=== PATIENT | female | born 1965 | race Caucasian/White ===

== ENCOUNTER 2016-11-17 18:38 | Emergency (ER) | payer BC ==
--- NOTE | 2016-11-17 18:56 | ED NURSING NOTES ---
Clinical Report - Nurses [facility] [address] [place] [address] 11/17/2016 18:40 Patient: CALVIN RUFFIN TRIAGE Triage time 18:44. Acuity: LEVEL 3. Chief Complaint: CAT BITE. Alert. No acute distress. --18:54 Stacia Alvarenga R.N. 18:44 11/17/16. BP: 136/69. HR: 82. RR: 18. O2 saturation: 99%. Temp: 97.9 F. Pain level now: 08/20. --18:54 Stacia Alvarenga R.N. Weight: 74.8 kg stated. Height/Length: 64 inches Per Patient. BMI: 28.3. --18:53 Stacia Alvarenga R.N. Medications None. --18:48 Stacia Alvarenga R.N. Medication/allergy information source: the patient. --18:54 Stacia Alvarenga R.N. Allergies No Known Drug Allergy. --18:48 Stacia Alvarenga R.N. History Arrived by private vehicle. Historian: patient. Accompanied by family. Primary physician (HAMIDA). Location of injuries: left elbow. This occurred just prior to arrival. (GIVING CAT WORM MEDS). The animal reportedly appeared well and is up to date on immunizations. Treatment CLIP WRAPPER: Performed wound care. PAST MEDICAL HX: Tetanus status: up-to-date. The patient is post-menopausal. SOCIAL HX: Smoker- current status unknown. Occasional alcohol use. No drug use. FALL RISK ASSESSMENT: Fall risk assessment completed. No fall risk identified. NUTRITIONAL RISK ASSESSMENT: The nutritional risk assessment revealed no deficiencies. FUNCTIONAL ASSESSMENT: Functional assessment: no impairments noted. LEARNING NEEDS ASSESSMENT: The learning needs assessment revealed no barriers. SKIN INTEGRITY ASSESSMENT: Skin integrity risk assessment completed. No skin integrity risk identified. --18:54 Stacia Alvarenga R.N. PROBLEMS: Mitral Valve Prolapse. Asthma. --18:51 Stacia Alvarenga R.N. ADDITIONAL SURGERIES: . --18:51 Stacia Alvarenga R.N. Tonsillectomy. --18:52 Stacia Alvarenga R.N. Interventions ID band on patient. To room. --18:54 Stacia Alvarenga R.N. PHYSICAL ASSESSMENT Ambulatory to room. GENERAL / NEURO / PSYCH: Alert. Oriented X 4. Appears anxious. HEENT: Head non-tender. RESPIRATORY: Respirations not labored. CVS: Capillary refill less than 2 seconds. GI / : Abdomen soft and nontender. EXTREMITIES: Extremities exhibit normal ROM. Neuro-vascular status intact to the extremity. SKIN: ( cat bite lt ac). --18:54 Stacia Alvarenga R.N. NURSING PROGRESS NOTES Extremity elevated. Two patient identifiers checked. Call light placed in reach. Side rails up x 2. Bed placed in lowest position. Brakes of bed on. Patient ready for evaluation. --18:55 Stacia Alvarenga R.N. 18:57 11/17/2016 Augmentin (Amoxicillin-Pot Clavulanate) PO 875 mg given. Allergies verified and confirmed 5 rights. --18:57 Stacia Alvarenga R.N. DISPOSITION / DISCHARGE 19:03 11/17/16. Condition at departure: improved. No learning barriers present. Discharge instructions provided and reviewed with the patient and family. Reviewed medication(s) side effects, precautions, dosing and course information. Prescription(s) given to the patient. Patient verbalized understanding. Written instructions provided in Mauritanian. The patient was discharged home and accompanied by family. She left the Emergency Department ambulatory and via private vehicle. Family member driving. Medication list reviewed and validated. --19:03 Stacia Alvarenga R.N. 18:44 11/17/16. BP: 136/69. HR: 82. RR: 18. O2 saturation: 99%. Temp: 97.9 F. Pain level now: 08/20. --19:03 Stacia Alvarenga R.N. Locked/Released at 11/17/2016 19:04 by Stacia Alvarenga R.N.
--- NOTE | 2016-11-17 18:56 | ED CLINICAL REPORT ---
Clinical Report - Physicians/Mid Levels [facility] [address] [place] [address] 11/17/2016 18:40 Patient: CALVIN RUFFIN Time Seen: 1840. Arrived- By private vehicle. Historian- patient. HISTORY OF PRESENT ILLNESS Chief Complaint: CAT BITE. Location of injuries- (LUE). The injury occurred today. The animal reportedly appeared well, is up to date on immunizations and can be observed for ten days. Occurred at home. (occurred while trying to give the cat worm medication). No skin rash, dizziness, itching or difficulty breathing. She has not had swelling, drainage or trouble swallowing. Treatment HOME CARE AIDE- none. REVIEW OF SYSTEMS No swelling, numbness, headache, difficulty breathing or weakness. No tingling, chest pain, nausea or abdominal pain. All systems otherwise negative, except as recorded above. PAST HISTORY See nurses notes. Tetanus immunization status is up-to-date. Medications: None. Allergies: No Known Drug Allergy. PHYSICAL EXAM Appearance: Alert. Oriented X3. No acute distress. Head: Head normal on inspection and non-tender. No Bhatti's sign or raccoon eyes. CVS: Heart sounds normal. Pulses normal. Respiratory: Chest normal on inspection. Breath sounds normal. Chest nontender. Abdomen: Normal inspection. Soft and nontender. Bowel sounds normal. Extremities: (superficial abrasion noted to the left AC and small pucture wound to the left thumb. It is not over the joint. No FB. Bleeding controlled. No gross contamination.). PROGRESS AND PROCEDURES Course of Care: The patient is a 51-year-old female with no pertinent past medical history presenting for evaluation of cat bite. Patient states that her cat had bitten her on the upper extremity after giving the cat deworming pills. No signs of cellulitis at this time. No gross Contamination. The patient states that her cat is a Maori blue. Vaccinations are up-to-date per the family. No other findings noted on patient's workup. Recommended Prophylactic antibiotics because of the Bite. No signs of active infection. Tetanus up to date per patient. Discussed with patient her work up in the emergency department including diagnosis home care, follow up, and return precautions. All questions answered. patient expressed understanding of these instructions and was agreeable to them. Disposition: Discharged. Condition: good. CLINICAL IMPRESSION 11/17/2016 18:44 BP: 136/69. HR: 82. RR: 18. O2 saturation: 99%. Temp: 97.9 F. Pain level now: 3/10. Blood pressure normal. Oxygen saturation normal. Multiple deep cat bites (left arm and thumb). Bites do not appear infected. Multiple deep puncture wounds (left thumb and arm). No puncture wound with foreign body present. Not penetrating into body cavity. INSTRUCTIONS Warnings: GENERAL WARNINGS: Return or contact your physician immediately if your condition worsens or changes unexpectedly, if not improving as expected, or if other problems arise. Specifically return if pain, vomiting, bleeding, breathing difficulty or fever. Your Current Medications: CONTINUE TAKING THE FOLLOWING MEDICATIONS: None*. Prescription Medications: Augmentin 875 mg: take 1 tablet orally every 12 hours for 10 days. No refill. Substitution is permissible. (disp 20 tabs) Follow-up: Return to the emergency department as needed. Follow up with your doctor in five days. Reason for referral: recheck today's concerns. Summary of care provided to patient via paper. Screening today revealed the patient's blood pressure to be in the normal range. The patient should follow up with a primary care provider for blood pressure management. Understanding of the discharge instructions verbalized by patient. (Electronically signed by Asher Hunter Dr. 11/20/2016 7:14)
--- NOTE | 2016-11-17 18:56 | ED CLINICAL REPORT ---
Clinical Report - Physicians/Mid Levels [facility] [address] [place] [address] 11/17/2016 18:40 Patient: CALVIN RUFFIN Time Seen: 1840. Arrived- By private vehicle. Historian- patient. HISTORY OF PRESENT ILLNESS Chief Complaint: CAT BITE. Location of injuries- (LUE). The injury occurred today. The animal reportedly appeared well, is up to date on immunizations and can be observed for ten days. Occurred at home. (occurred while trying to give the cat worm medication). No skin rash, dizziness, itching or difficulty breathing. She has not had swelling, drainage or trouble swallowing. Treatment TAR HEEL- none. REVIEW OF SYSTEMS No swelling, numbness, headache, difficulty breathing or weakness. No tingling, chest pain, nausea or abdominal pain. All systems otherwise negative, except as recorded above. PAST HISTORY See nurses notes. Tetanus immunization status is up-to-date. Medications: None. Allergies: No Known Drug Allergy. PHYSICAL EXAM Appearance: Alert. Oriented X3. No acute distress. Head: Head normal on inspection and non-tender. No Bhatti's sign or raccoon eyes. CVS: Heart sounds normal. Pulses normal. Respiratory: Chest normal on inspection. Breath sounds normal. Chest nontender. Abdomen: Normal inspection. Soft and nontender. Bowel sounds normal. Extremities: (superficial abrasion noted to the left AC and small pucture wound to the left thumb. It is not over the joint. No FB. Bleeding controlled. No gross contamination.). PROGRESS AND PROCEDURES Course of Care: The patient is a 51-year-old female with no pertinent past medical history presenting for evaluation of cat bite. Patient states that her cat had bitten her on the upper extremity after giving the cat deworming pills. No signs of cellulitis at this time. No gross Contamination. The patient states that her cat is a Ukrainian blue. Vaccinations are up-to-date per the family. No other findings noted on patient's workup. Recommended Prophylactic antibiotics because of the Bite. No signs of active infection. Tetanus up to date per patient. Discussed with patient her work up in the emergency department including diagnosis home care, follow up, and return precautions. All questions answered. patient expressed understanding of these instructions and was agreeable to them. Disposition: Discharged. Condition: good. CLINICAL IMPRESSION 11/17/2016 18:44 BP: 136/69. HR: 82. RR: 18. O2 saturation: 99%. Temp: 97.9 F. Pain level now: 3/10. Blood pressure normal. Oxygen saturation normal. Multiple deep cat bites (left arm and thumb). Bites do not appear infected. Multiple deep puncture wounds (left thumb and arm). No puncture wound with foreign body present. Not penetrating into body cavity. INSTRUCTIONS Warnings: GENERAL WARNINGS: Return or contact your physician immediately if your condition worsens or changes unexpectedly, if not improving as expected, or if other problems arise. Specifically return if pain, vomiting, bleeding, breathing difficulty or fever. Your Current Medications: CONTINUE TAKING THE FOLLOWING MEDICATIONS: None*. Prescription Medications: Augmentin 875 mg: take 1 tablet orally every 12 hours for 10 days. No refill. Substitution is permissible. (disp 20 tabs) Follow-up: Return to the emergency department as needed. Follow up with your doctor in five days. Reason for referral: recheck today's concerns. Summary of care provided to patient via paper. Screening today revealed the patient's blood pressure to be in the normal range. The patient should follow up with a primary care provider for blood pressure management. Understanding of the discharge instructions verbalized by patient. (Electronically signed by Asher Hunter Dr. 11/20/2016 7:14)
--- NOTE | 2016-11-17 18:56 | ED ORDER SUMMARY ---
..... Patient: CALVIN RFUFIN OrderSheet [facility] VisitID: [id number] [address] [place] [address] 51y, F Registration Date/Time: 11/17/2016 ORDER SHEET Weight: 74.8 kg (stated) Allergies: No Known Drug Allergy GENERAL ORDERS: MEDICATION ORDERS: Augmentin PO 875 mg (NOW) (18:52 11/17/2016 Blaise Styles) (Ack 18:55 SRoberts R.N.) (18:57 SRoberts R.N.) IV FLUIDS: ORDER SHEET NOTES: [Electronically signed by Stacia Alvarenga R.N. (19:04 11/17/2016)] [Electronically signed by Asher Hunter Dr. (07:14 11/20/2016)] [Electronically locked/signed by Stacia Alvarenga R.N. (19:04 11/17/2016)]
--- NOTE | 2016-11-17 18:56 | ED ORDER SUMMARY ---
..... Patient: CALVIN RUFFIN OrderSheet [facility] VisitID: [id number] [address] [place] [address] 51y, F Registration Date/Time: 11/17/2016 ORDER SHEET Weight: 74.8 kg (stated) Allergies: No Known Drug Allergy GENERAL ORDERS: MEDICATION ORDERS: Augmentin PO 875 mg (NOW) (18:52 11/17/2016 Blaise Styles) (Ack 18:55 SRoberts R.N.) (18:57 SRoberts R.N.) IV FLUIDS: ORDER SHEET NOTES: [Electronically signed by Stacia Alvarenga R.N. (19:04 11/17/2016)] [Electronically signed by Asher Hunter Dr. (07:14 11/20/2016)] [Electronically locked/signed by Stacia Alvarenga R.N. (19:04 11/17/2016)]
--- NOTE | 2016-11-17 18:56 | ED NURSING NOTES ---
Clinical Report - Nurses [facility] [address] [place] [address] 11/17/2016 18:40 Patient: CALVIN RUFFIN TRIAGE Triage time 18:44. Acuity: LEVEL 3. Chief Complaint: CAT BITE. Alert. No acute distress. --18:54 Stacia Alvarenga R.N. 18:44 11/17/16. BP: 136/69. HR: 82. RR: 18. O2 saturation: 99%. Temp: 97.9 F. Pain level now: 08/20. --18:54 Stacia Alvarenga R.N. Weight: 74.8 kg stated. Height/Length: 64 inches Per Patient. BMI: 28.3. --18:53 Stacia Alvarenga R.N. Medications None. --18:48 Stacia Alvarenga R.N. Medication/allergy information source: the patient. --18:54 Stacia Alvarenga R.N. Allergies No Known Drug Allergy. --18:48 Stacia Alvarenga R.N. History Arrived by private vehicle. Historian: patient. Accompanied by family. Primary physician (HAMIDA). Location of injuries: left elbow. This occurred just prior to arrival. (GIVING CAT WORM MEDS). The animal reportedly appeared well and is up to date on immunizations. Treatment SWIMMING POOL MAINTENANCE: Performed wound care. PAST MEDICAL HX: Tetanus status: up-to-date. The patient is post-menopausal. SOCIAL HX: Smoker- current status unknown. Occasional alcohol use. No drug use. FALL RISK ASSESSMENT: Fall risk assessment completed. No fall risk identified. NUTRITIONAL RISK ASSESSMENT: The nutritional risk assessment revealed no deficiencies. FUNCTIONAL ASSESSMENT: Functional assessment: no impairments noted. LEARNING NEEDS ASSESSMENT: The learning needs assessment revealed no barriers. SKIN INTEGRITY ASSESSMENT: Skin integrity risk assessment completed. No skin integrity risk identified. --18:54 Stacia Alvarenga R.N. PROBLEMS: Mitral Valve Prolapse. Asthma. --18:51 Stacia Alvarenga R.N. ADDITIONAL SURGERIES: . --18:51 Stacia Alvarenga R.N. Tonsillectomy. --18:52 Stacia Alvarenga R.N. Interventions ID band on patient. To room. --18:54 Stacia Alvarenga R.N. PHYSICAL ASSESSMENT Ambulatory to room. GENERAL / NEURO / PSYCH: Alert. Oriented X 4. Appears anxious. HEENT: Head non-tender. RESPIRATORY: Respirations not labored. CVS: Capillary refill less than 2 seconds. GI / : Abdomen soft and nontender. EXTREMITIES: Extremities exhibit normal ROM. Neuro-vascular status intact to the extremity. SKIN: ( cat bite lt ac). --18:54 Stacia Alvarenga R.N. NURSING PROGRESS NOTES Extremity elevated. Two patient identifiers checked. Call light placed in reach. Side rails up x 2. Bed placed in lowest position. Brakes of bed on. Patient ready for evaluation. --18:55 Stacia Alvarenga R.N. 18:57 11/17/2016 Augmentin (Amoxicillin-Pot Clavulanate) PO 875 mg given. Allergies verified and confirmed 5 rights. --18:57 Stacia Alvarenga R.N. DISPOSITION / DISCHARGE 19:03 11/17/16. Condition at departure: improved. No learning barriers present. Discharge instructions provided and reviewed with the patient and family. Reviewed medication(s) side effects, precautions, dosing and course information. Prescription(s) given to the patient. Patient verbalized understanding. Written instructions provided in Kenyan. The patient was discharged home and accompanied by family. She left the Emergency Department ambulatory and via private vehicle. Family member driving. Medication list reviewed and validated. --19:03 Stacia Alvarenga R.N. 18:44 11/17/16. BP: 136/69. HR: 82. RR: 18. O2 saturation: 99%. Temp: 97.9 F. Pain level now: 08/20. --19:03 Stacia Alvarenga R.N. Locked/Released at 11/17/2016 19:04 by Stacia Alvarenga R.N.
--- NOTE | 2016-11-20 07:14 | ED MAR SUMMARY ---
..... Medication Administration Record [facility] [address] [place] [address] Patient: CALVIN RUFFIN Visit ID: [id number] 51y, F Weight: 74.8 kg Height/Length: 64 in BMI: 28.3 ALLERGIES: No Known Drug Allergy Given 18:57 11/17/2016 Stacia Alvarenga R.N. Medication Administered: AUGMENTIN [PO] (AMOXICILLIN-POT CLAVULANATE), Dose: 875 mg PO. Medication Ordered: Augmentin PO 875 mg (NOW).
--- NOTE | 2016-11-20 07:14 | ED DISCHARGE INSTRUCTIONS ---
Patient: CALVIN RUFFIN General Instructions [facility] VisitID: [id number] [address] [place] [address] 51y, F Registration Date/Time: 11/17/2016 11/17/2016 18:44 BP: 136/69. HR: 82. RR: 18. O2 saturation: 99%. Temp: 97.9 F. Pain level now: 310. Blood pressure normal. Oxygen saturation normal. Multiple deep cat bites (left arm and thumb). Bites do not appear infected. Multiple deep puncture wounds (left thumb and arm). No puncture wound with foreign body present. Not penetrating into body cavity. INSTRUCTIONS Warnings: GENERAL WARNINGS: Return or contact your physician immediately if your condition worsens or changes unexpectedly, if not improving as expected, or if other problems arise. Specifically return if pain, vomiting, bleeding, breathing difficulty or fever. Your Current Medications: CONTINUE TAKING THE FOLLOWING MEDICATIONS: None*. Prescription Medications: Augmentin 875 mg: take 1 tablet orally every 12 hours for 10 days. No refill. Substitution is permissible. (disp 20 tabs) Follow-up: Return to the emergency department as needed. Follow up with your doctor in five days. Reason for referral: recheck today's concerns. Summary of care provided to patient via paper. Screening today revealed the patient's blood pressure to be in the normal range. The patient should follow up with a primary care provider for blood pressure management. Understanding of the discharge instructions verbalized by patient. ADDITIONAL INFORMATION Cat Bite If a cat has bitten you and the wound is deep enough to break the skin, an infection may occur. Therefore, watch for the warning signs listed below. The doctor may not close the wound completely. This allows fluid to drain in the event of an infection. Home Care Watch the wound for signs of infection listed below, which may begin within6 hours after the bite and progress rapidly. If antibiotics were prescribed, begin taking them as soon as possible. Take these as directed until they are all gone. Rabies Prevention If you live in an area where rabies occurs in wild animals, the rabies virus can be passed to cats and dogs. An infected animal can pass the virus to you during a bite. If ahealthy-looking pet cat has bitten you, it should be kept in a secure area for the next 10 days to watch for signs of illness. If the pets clinical lab assistant wont cooperate with you, contact the counts include 234 beds at the [facility] animal control department (or local law enforcement). If the animal becomes ill or dies within 10 days, contact your counts include 234 beds at the [facility] animal control department at once. The animal must be tested for rabies. If the animal stays healthy for the next10 days, then there is no danger of rabies in the cat or you. Pets fully vaccinated against rabies (2 shots) are at very low risk for the infection. However, because human rabies is usually fatal, any biting pet cat should be confined for 10 days as an extra precaution. If a stray cat has bitten you, contact the counts include 234 beds [facility] [place] They can provide information on capture, quarantine, and animal rabies testing. If you are unable to locate the animal that bit you in the next2 days, you must be evaluated for the rabies vaccination series within 3days after the bite. Contact your doctor or return to this facility promptly, to arrange this. All animal bites should be reported to your counts include 234 beds at the [facility] animal control department. If you were not given a form to fill out, call the counts include 234 beds at the [facility] animal control department to report it yourself. Follow Up with your doctor or this facility as directed. Most skin wounds heal within 10 days. However, an infection may occur even with proper treatment. Check your wound every 6 hours for the first 2 days, then at least once a day for the next few days for the signs of infection listed below. Get Prompt Medical Attention if any of the following occur: Signs of infection: Spreading redness Increased pain or swelling Fever of 100.4F (37C) or higher, or as directed by your healthcare provider Colored fluid or pus draining from the wound The biting animal becomes sick or dies Headache, confusion, strange behavior, or a seizure (signs of a rabies infection) Puncture Wound (General) A puncture wound is a hole through the skin. Bacteria, dirt and debris can be drawn into this wound, increasing the risk of infection. However, antibiotics are usually not prescribed for this injury unless signs of infection are already present. Therefore, it is important to observe the wound closely for the signs of infection listed below. Home Care: If your wound is on an arm, hand, leg, or foot, keep that part raised during the first 48 hours to reduce swelling and pain. Keep the wound clean and dry. If a bandage was applied and it becomes wet or dirty, replace it. Otherwise, leave it in place for the next 24 hours. You may use acetaminophen (Tylenol) or ibuprofen (Motrin, Advil) to control pain, unless another medicine was prescribed. [NOTE: If you have chronic liver or kidney disease or ever had a stomach ulcer or GI bleeding, talk with your doctor before using these medicines.] You may shower as usual. However, do not soak the area in water (no baths or swimming) during the first 48 hours. Follow Up: Most puncture wounds heal within 10 days. However, an infection may sometimes occur despite proper treatment. If small particles were drawn into the puncture wound (such as fragments of cloth, rubber, wood or dirt), an infection may occur. These fragments are very hard to find during the first exam since it is not possible to get a good look inside a puncture wound and they do not show on an X-ray. Antibiotics and a minor surgical procedure to find and remove the foreign object will be needed if this happens. Therefore, check the wound daily for the warning signs listed below. Get Prompt Medical Attention if any of the following occur: SIGNS OF INFECTION: Increasing pain in the wound Redness, swelling, pus or red lines coming from the wound Fever of 100.4F (38C) or higher, or as directed by your healthcare provider Amoxicillin Trihydrate, Clavulanate Potassium Oral tablet What is this medicine? AMOXICILLIN; CLAVULANIC ACID (a mox i LUIS E in; NARAYAN sen ic id) is a penicillin antibiotic. It is used to treat certain kinds of bacterial infections. It will not work for colds, flu, or other viral infections. How should I use this medicine? Take this medicine by mouth with a full glass of water. Follow the directions on the prescription label. Take at the start of a meal. Do not crush or chew. If the tablet has a score line, you may cut it in half at the score line for easier swallowing. Take your medicine at regular intervals. Do not take your medicine more often than directed. Take all of your medicine as directed even if you think you are better. Do not skip doses or stop your medicine early. Talk to your zookeeper regarding the use of this medicine in children. Special care may be needed. What side effects may I notice from receiving this medicine? Side effects that you should report to your doctor or health healthcare administrative assistant as soon as possible: allergic reactions like skin rash, itching or hives, swelling of the face, lips, or tongue breathing problems dark urine fever or chills, sore throat redness, blistering, peeling or loosening of the skin, including inside the mouth seizures trouble passing urine or change in the amount of urine unusual bleeding, bruising unusually weak or tired white patches or sores in the mouth or throat Side effects that usually do not require medical attention (report to your doctor or health healthcare administrative assistant if they continue or are bothersome): diarrhea dizziness headache nausea, vomiting stomach upset vaginal or anal irritation What may interact with this medicine? allopurinol anticoagulants control pills methotrexate probenecid What if I miss a dose? If you miss a dose, take it as soon as you can. If it is almost time for your next dose, take only that dose. Do not take double or extra doses. Where should I keep my medicine? Keep out of the reach of children. Store at room temperature below 25 degrees C (77 degrees F). Keep container tightly closed. Throw away any unused medicine after the expiration date. What should I tell my health care provider before I take this medicine? They need to know if you have any of these conditions: bowel disease, like colitis kidney disease liver disease mononucleosis an unusual or allergic reaction to amoxicillin, penicillin, cephalosporin, other antibiotics, clavulanic acid, other medicines, foods, dyes, or preservatives or trying to get breast-feeding What should I watch for while using this medicine? Tell your doctor or health healthcare administrative assistant if your symptoms do not improve. Do not treat diarrhea with over the counter products. Contact your doctor if you have diarrhea that lasts more than 2 days or if it is severe and watery. If you have diabetes, you may get a false-positive result for sugar in your urine. Check with your doctor or health healthcare administrative assistant. control pills may not work properly while you are taking this medicine. Talk to your doctor about using an extra method of control. You have been given the following additional information: Cat Bite Puncture Wound, General Amoxicillin Trihydrate, Clavulanate Potassium Oral tablet (Electronically signed by Asher Hunter Dr. 11/20/2016 7:14)
--- NOTE | 2016-11-20 07:14 | ED MED RECONCILIATION SUMMARY ---
Patient: CALVIN RUFFIN Medication Reconciliation Report [facility] VisitID: [id number] [address] [place] [address] 51y, F Registration Date/Time: 11/17/2016 Weight: 74.8 kg Height/Length: 64 in. BMI: 28.3 ALLERGIES: No Known Drug Allergy The patient's Home Medications are listed below: NONE. The source(s) of the original Home Medication information: patient The following Medications were given to the patient in the Emergency Department: Augmentin [PO] PO 875 mg, administered: 11/17/2016 6:57:00 PM The following Medications were prescribed to the patient: Augmentin 875 mg: take 1 tablet orally every 12 hours for 10 days. No refill. Substitution is permissible.(disp 20 tabs) -- Asher Hunter Dr.
--- NOTE | 2016-11-20 07:14 | ED MED RECONCILIATION SUMMARY ---
Patient: CALVIN RUFFIN Medication Reconciliation Report [facility] VisitID: [id number] [address] [place] [address] 51y, F Registration Date/Time: 11/17/2016 Weight: 74.8 kg Height/Length: 64 in. BMI: 28.3 ALLERGIES: No Known Drug Allergy The patient's Home Medications are listed below: NONE. The source(s) of the original Home Medication information: patient The following Medications were given to the patient in the Emergency Department: Augmentin [PO] PO 875 mg, administered: 11/17/2016 6:57:00 PM The following Medications were prescribed to the patient: Augmentin 875 mg: take 1 tablet orally every 12 hours for 10 days. No refill. Substitution is permissible.(disp 20 tabs) -- Asher Hunter Dr.
--- NOTE | 2016-11-20 07:14 | ED DISCHARGE INSTRUCTIONS ---
Patient: CALVIN RUFFIN General Instructions [facility] VisitID: [id number] [address] [place] [address] 51y, F Registration Date/Time: 11/17/2016 11/17/2016 18:44 BP: 136/69. HR: 82. RR: 18. O2 saturation: 99%. Temp: 97.9 F. Pain level now: 310. Blood pressure normal. Oxygen saturation normal. Multiple deep cat bites (left arm and thumb). Bites do not appear infected. Multiple deep puncture wounds (left thumb and arm). No puncture wound with foreign body present. Not penetrating into body cavity. INSTRUCTIONS Warnings: GENERAL WARNINGS: Return or contact your physician immediately if your condition worsens or changes unexpectedly, if not improving as expected, or if other problems arise. Specifically return if pain, vomiting, bleeding, breathing difficulty or fever. Your Current Medications: CONTINUE TAKING THE FOLLOWING MEDICATIONS: None*. Prescription Medications: Augmentin 875 mg: take 1 tablet orally every 12 hours for 10 days. No refill. Substitution is permissible. (disp 20 tabs) Follow-up: Return to the emergency department as needed. Follow up with your doctor in five days. Reason for referral: recheck today's concerns. Summary of care provided to patient via paper. Screening today revealed the patient's blood pressure to be in the normal range. The patient should follow up with a primary care provider for blood pressure management. Understanding of the discharge instructions verbalized by patient. ADDITIONAL INFORMATION Cat Bite If a cat has bitten you and the wound is deep enough to break the skin, an infection may occur. Therefore, watch for the warning signs listed below. The doctor may not close the wound completely. This allows fluid to drain in the event of an infection. Home Care Watch the wound for signs of infection listed below, which may begin within6 hours after the bite and progress rapidly. If antibiotics were prescribed, begin taking them as soon as possible. Take these as directed until they are all gone. Rabies Prevention If you live in an area where rabies occurs in wild animals, the rabies virus can be passed to cats and dogs. An infected animal can pass the virus to you during a bite. If ahealthy-looking pet cat has bitten you, it should be kept in a secure area for the next 10 days to watch for signs of illness. If the pets owner professional engineer wont cooperate with you, contact the [facility] animal control department (or local law enforcement). If the animal becomes ill or dies within 10 days, contact your [facility] animal control department at once. The animal must be tested for rabies. If the animal stays healthy for the next10 days, then there is no danger of rabies in the cat or you. Pets fully vaccinated against rabies (2 shots) are at very low risk for the infection. However, because human rabies is usually fatal, any biting pet cat should be confined for 10 days as an extra precaution. If a stray cat has bitten you, contact the [facility]. They can provide information on capture, quarantine, and animal rabies testing. If you are unable to locate the animal that bit you in the next2 days, you must be evaluated for the rabies vaccination series within 3days after the bite. Contact your doctor or return to this facility promptly, to arrange this. All animal bites should be reported to your [facility] animal control department. If you were not given a form to fill out, call the [facility] animal control department to report it yourself. Follow Up with your doctor or this facility as directed. Most skin wounds heal within 10 days. However, an infection may occur even with proper treatment. Check your wound every 6 hours for the first 2 days, then at least once a day for the next few days for the signs of infection listed below. Get Prompt Medical Attention if any of the following occur: Signs of infection: Spreading redness Increased pain or swelling Fever of 100.4F (37C) or higher, or as directed by your healthcare provider Colored fluid or pus draining from the wound The biting animal becomes sick or dies Headache, confusion, strange behavior, or a seizure (signs of a rabies infection) Puncture Wound (General) A puncture wound is a hole through the skin. Bacteria, dirt and debris can be drawn into this wound, increasing the risk of infection. However, antibiotics are usually not prescribed for this injury unless signs of infection are already present. Therefore, it is important to observe the wound closely for the signs of infection listed below. Home Care: If your wound is on an arm, hand, leg, or foot, keep that part raised during the first 48 hours to reduce swelling and pain. Keep the wound clean and dry. If a bandage was applied and it becomes wet or dirty, replace it. Otherwise, leave it in place for the next 24 hours. You may use acetaminophen (Tylenol) or ibuprofen (Motrin, Advil) to control pain, unless another medicine was prescribed. [NOTE: If you have chronic liver or kidney disease or ever had a stomach ulcer or GI bleeding, talk with your doctor before using these medicines.] You may shower as usual. However, do not soak the area in water (no baths or swimming) during the first 48 hours. Follow Up: Most puncture wounds heal within 10 days. However, an infection may sometimes occur despite proper treatment. If small particles were drawn into the puncture wound (such as fragments of cloth, rubber, wood or dirt), an infection may occur. These fragments are very hard to find during the first exam since it is not possible to get a good look inside a puncture wound and they do not show on an X-ray. Antibiotics and a minor surgical procedure to find and remove the foreign object will be needed if this happens. Therefore, check the wound daily for the warning signs listed below. Get Prompt Medical Attention if any of the following occur: SIGNS OF INFECTION: Increasing pain in the wound Redness, swelling, pus or red lines coming from the wound Fever of 100.4F (38C) or higher, or as directed by your healthcare provider Amoxicillin Trihydrate, Clavulanate Potassium Oral tablet What is this medicine? AMOXICILLIN; CLAVULANIC ACID (a mox i LUIS E in; NARAYAN sen ic id) is a penicillin antibiotic. It is used to treat certain kinds of bacterial infections. It will not work for colds, flu, or other viral infections. How should I use this medicine? Take this medicine by mouth with a full glass of water. Follow the directions on the prescription label. Take at the start of a meal. Do not crush or chew. If the tablet has a score line, you may cut it in half at the score line for easier swallowing. Take your medicine at regular intervals. Do not take your medicine more often than directed. Take all of your medicine as directed even if you think you are better. Do not skip doses or stop your medicine early. Talk to your manager music regarding the use of this medicine in children. Special care may be needed. What side effects may I notice from receiving this medicine? Side effects that you should report to your doctor or health acute care registered nurse as soon as possible: allergic reactions like skin rash, itching or hives, swelling of the face, lips, or tongue breathing problems dark urine fever or chills, sore throat redness, blistering, peeling or loosening of the skin, including inside the mouth seizures trouble passing urine or change in the amount of urine unusual bleeding, bruising unusually weak or tired white patches or sores in the mouth or throat Side effects that usually do not require medical attention (report to your doctor or health acute care registered nurse if they continue or are bothersome): diarrhea dizziness headache nausea, vomiting stomach upset vaginal or anal irritation What may interact with this medicine? allopurinol anticoagulants control pills methotrexate probenecid What if I miss a dose? If you miss a dose, take it as soon as you can. If it is almost time for your next dose, take only that dose. Do not take double or extra doses. Where should I keep my medicine? Keep out of the reach of children. Store at room temperature below 25 degrees C (77 degrees F). Keep container tightly closed. Throw away any unused medicine after the expiration date. What should I tell my health care provider before I take this medicine? They need to know if you have any of these conditions: bowel disease, like colitis kidney disease liver disease mononucleosis an unusual or allergic reaction to amoxicillin, penicillin, cephalosporin, other antibiotics, clavulanic acid, other medicines, foods, dyes, or preservatives or trying to get breast-feeding What should I watch for while using this medicine? Tell your doctor or health acute care registered nurse if your symptoms do not improve. Do not treat diarrhea with over the counter products. Contact your doctor if you have diarrhea that lasts more than 2 days or if it is severe and watery. If you have diabetes, you may get a false-positive result for sugar in your urine. Check with your doctor or health acute care registered nurse. control pills may not work properly while you are taking this medicine. Talk to your doctor about using an extra method of control. You have been given the following additional information: Cat Bite Puncture Wound, General Amoxicillin Trihydrate, Clavulanate Potassium Oral tablet (Electronically signed by Asher Hunter Dr. 11/20/2016 7:14)
--- NOTE | 2016-11-20 07:14 | ED MAR SUMMARY ---
..... Medication Administration Record [facility] [address] [place] [address] Patient: CALVIN RUFFIN Visit ID: [id number] 51y, F Weight: 74.8 kg Height/Length: 64 in BMI: 28.3 ALLERGIES: No Known Drug Allergy Given 18:57 11/17/2016 Stacia Alvarenga R.N. Medication Administered: AUGMENTIN [PO] (AMOXICILLIN-POT CLAVULANATE), Dose: 875 mg PO. Medication Ordered: Augmentin PO 875 mg (NOW).
== END 2016-11-17 19:00 | disposition home or self-care (01) ==
LOC: ED SRH 18:38
DX: S41.152A Open bite of left upper arm, initial encounter (principal); S61.052A Open bite of left thumb without damage to nail, initial encounter; W55.01XA Bitten by cat, initial encounter; Y93.89 Activity, other specified; Y99.9 Unspecified external cause status; Y92.009 Unspecified place in unspecified non-institutional (private) residence as the place of occurrence of the external cause